=== PATIENT | male | born 1955 | race Caucasian/White ===

== ENCOUNTER 2025-02-18 17:09 | Observation (INO) ==
[2025-02-18 17:31] LABS: HCT - HEMATOCRIT 39.3 % (42.0-52.0); HGB - HEMOGLOBIN 13.0 g/dL (14.0-18.0); MEAN PLATELET VOLUME 8.3 fL (7.4-11.4); NRBC ABSOLUTE COUNT (AUTO) 0.00 x10^3/uL; NUCLEATED RED BLOOD CELLS AUTO 0.0 /100WBC; PLT - PLATELET COUNT 327 10^3/uL (130-450); RED CELL DISTRIBUTION WIDTH 14.0 % (12.0-15.0)
[2025-02-18 17:50] LABS: ALT ALANINE AMINOTRANSFERASE 29.0 IU/L (10-60); AST ASPARTATE AMINOTRANSFERASE 18.0 IU/L (10-42); BUN - BLOOD UREA NITROGEN 23.0 mg/dL (6-20); CARBON DIOXIDE - CO2 30.0 mmol/L (21-32); CREATININE 1.0 mg/dL (0.6-1.3); GFR - MDRD 74.0 (>89)
[2025-02-18] MEDS: SODIUM CHLORIDE 0.9% 1,000 ML IV STA (18:34)
[2025-02-18] MEDS: POTASSIUM BICARB 25 MEQ TABLET PO STA (19:38)
--- NOTE | 2025-02-18 19:51 | ED Physician Documentation ---
History of Present Illness Stated complaint Stated Complaint: SYNCOPE Chief complaint Chief Complaint: Neuro History obtained from History obtained from: Patient History of Present Illness Timing: Prior to arrival Additonal information Additional information: Patient is a 69-year-old male presenting to the emergency department after syncopal episode at home. Syncope occurred shortly prior to arrival patient admits to taking an extra hydrochlorothiazide dose that he was instructed to take if his blood pressures over 140. He notes he is not eating or drinking very much the last few days as he recently had an endarterectomy procedure for stenosis of the right carotid. He notes procedure went well he was seen by vascular surgery at [facility] and recovered well he was back at home currently on dual antiplatelet therapy and monitoring blood pressures closely. He notes he has been compliant with meds at home but has continued to smoke. He denies any chest pain or shortness of breath he is feeling generally weak prior to syncopal episode episode lasted about 30 seconds where patient went nonverbal for about 30 seconds and some possible right facial drooping occurred patient 911 was called patient was hypotensive at 88/60 sitting and then standing blood pressure of 70/30 with normal saline given. Patient arrives resting ANO x 3 no focal deficit. Meds/Allgy Home Medications Ambulatory Orders Medication Instructions Recorded Confirmed aspirin 325 mg tablet 325 mg PO DAILY #30 tabs 02/16 clopidogrel 75 mg tablet (Plavix) 75 mg PO DAILY #30 t abs 01/31/25 losartan 25 mg tablet 25 mg PO DAILY #30 tabs 02/16 simvastatin 20 mg tablet 20 mg PO DAILY #30 tabs 02/16 Allergies Allergies Allergy/AdvReac Type Severity Reaction Status Date / Time No Known Drug Allergies Allergy Verified 02/18/25 17:29 PFSH Active Problems All Active Problems (Updated 02/18/25 @ 20:52 by Ritika Nguyen PA-C) Orthostatic hypotension (Acute) Syncope (Acute) Syncope (Acute) Leukoplakia of oral mucosa, including tongue (Acute) Tobacco use (Acute) Hyperlipidemia (Chronic) Fasting hyperglycemia (Acute) Anemia, macrocytic (Acute) Preventative health care (Acute) Hypertension (Chronic) Carotid artery stenosis (Acute) Brain TIA (Acute) Adjustment disorder with depressed mood (Acute) Anxiety (Acute) Medical History Medical History (Updated 02/18/25 @ 20:52 by Ritika Nguyen PA-C) Depression Surgical History Surgical History H/O heart artery stent Social History Social History Smoking Status: Unknown if ever smoked Living arrangement: At home Do you feel safe in your home environment?: Yes History of physical, verbal, emotional, or financial abuse?: No POLST Patient has POLST: No Exam Exam Vital Signs: Vital Signs x48h Temp Pulse Pulse Pulse Pulse Resp BP 02/18/25 19:14 76 77 73 02/18/25 18:06 125/65 02/18/25 18:06 125/65 02/18/25 17:48 70 17 89/51 L 02/18/25 17:48 70 14 89/51 L 02/18/25 17:47 65 16 02/18/25 17:22 36.3 C L 66 13 112/48 L BP BP BP Pulse Ox 02/18/25 19:14 133/75 H 123/69 139/71 H 02/18/25 18:06 02/18/25 18:06 02/18/25 17:48 97 02/18/25 17:48 92 02/18/25 17:47 94 02/18/25 17:22 97 Constitutional normal general appearance HENMT normocephalic and head/scalp atraumatic Eyes PERRL, EOMs intact bilaterally and conjunctivae normal Neck/C-Spine visual inspection normal Lymph no lymphadenopathy noted Chest inspection of chest normal Respiratory breath sounds equal bilaterally, normal respiratory effort and clear to auscultation bilaterally Cardiovascular normal heart rate noted, regular rhythm noted and no gallop Gastrointestinal abdomen normal to inspection Neurology Cranial nerves III through XII intact patient has [id number] test intact GCS 15 on arrival no focal motor deficits no sensory deficits moving all extremities without difficulty on arrival. Psychiatry Mental Status Exam documented in the separate MSE Results Vitals Vitals: Vital Signs - 24 hr 02/18/25 17:22 02/18/25 17:47 02/18/25 17:48 Temperature 36.3 C L Temperature Source Temporal Artery Scan Pulse Rate 66 65 70 Pulse Rate [Sitting] Pulse Rate [Standing] Pulse Rate [Supine] Respiratory Rate 13 16 14 Blood Pressure 112/48 L 89/51 L Blood Pressure [Sitting] Blood Pressure [Standing] Blood Pressure [Supine] O2 Saturation 97 94 92 O2 Source Room air Pain Intensity 0 02/18/25 17:48 02/18/25 18:06 02/18/25 18:06 Temperature Temperature Source Pulse Rate 70 Pulse Rate [Sitting] Pulse Rate [Standing] Pulse Rate [Supine] Respiratory Rate 17 Blood Pressure 89/51 L 125/65 125/65 Blood Pressure [Sitting] Blood Pressure [Standing] Blood Pressure [Supine] O2 Saturation 97 O2 Source Pain Intensity 02/18/25 18:11 02/18/25 19:14 Temperature Temperature Source Pulse Rate Pulse Rate [Sitting] 76 Pulse Rate [Standing] 77 Pulse Rate [Supine] 73 Respiratory Rate Blood Pressure Blood Pressure [Sitting] 133/75 H Blood Pressure [Standing] 123/69 Blood Pressure [Supine] 139/71 H O2 Saturation O2 Source Pain Intensity 0 Oxygen O2 Source Room air Labs Labs: Laboratory Tests 02/18/25 02/18/25 02/18/25 17:27 18:06 18:37 WBC 12.2 H RBC 4.14 L Hgb 13.0 L Hct 39.3 L MCV 94.9 H MCH 31.4 H MCHC 33.1 RDW 14.0 Plt Count 327 MPV 8.3 Neut # (Auto) 8.6 H Lymph # (Auto) 2.5 Dickey # (Auto) 0.6 Eos # (Auto) 0.3 Baso # (Auto) 0.1 Absolute Nucleated RBC 0.00 Nucleated RBC % 0.0 Sodium 139 Potassium 3.3 L Chloride 103 Carbon Dioxide 30 Anion Gap 6.0 BUN 23 H Creatinine 1.0 Estimated GFR (MDRD) 74 L Glucose 114 H Lactic Acid 1.0 Calcium 8.9 Total Bilirubin 0.5 AST 18 ALT 29 Alkaline Phosphatase 81 Troponin I High Sens 6.5 B-Natriuretic Peptide 28 Total Protein 6.2 L Albumin 3.7 Globulin 2.5 Albumin/Globulin Ratio 1.5 Urine Color Urine Clarity Urine pH Ur Specific Drury Urine Protein Urine Glucose (UA) Urine Ketones Urine Occult Blood Urine Nitrite Urine Bilirubin Urine Urobilinogen Ur Leukocyte Esterase Ur Microscopic Review Urine Culture Comments Ethyl Alcohol < 10.0 02/18/25 19:52 WBC RBC Hgb Hct MCV MCH MCHC RDW Plt Count MPV Neut # (Auto) Lymph # (Auto) Dickey # (Auto) Eos # (Auto) Baso # (Auto) Absolute Nucleated RBC Nucleated RBC % Sodium Potassium Chloride Carbon Dioxide Anion Gap BUN Creatinine Estimated GFR (MDRD) Glucose Lactic Acid Calcium Total Bilirubin AST ALT Alkaline Phosphatase Troponin I High Sens B-Natriuretic Peptide Total Protein Albumin Globulin Albumin/Globulin Ratio Urine Color YELLOW Urine Clarity CLEAR Urine pH 8.0 H Ur Specific Drury 1.010 Urine Protein NEGATIVE Urine Glucose (UA) NEGATIVE Urine Ketones NEGATIVE Urine Occult Blood NEGATIVE Urine Nitrite NEGATIVE Urine Bilirubin NEGATIVE Urine Urobilinogen 0.2 (NORMAL) Ur Leukocyte Esterase NEGATIVE Ur Microscopic Review NOT INDICATED Urine Culture Comments NOT INDICATED Ethyl Alcohol PD Medical Decision Making ED course Complexity details: reviewed old records and reviewed results ED course: Patient 69-year-old male presenting to the emergency department with syncopal episodes and reports of possible right facial and right sided weakness during syncopal episode he recently had carotid endarterectomy procedure to weeks ago after being seen here on the and following up with [facility] vascular surgery after CTA showed near complete occlusion of right carotid artery. Patient followed had procedure done and was able to return home last week he has been home for about a week but took an extra dose of hydrochlorothiazide this morning for some slightly elevated blood pressures and SBP's over 140s. He had not been eating or drinking much secondary to his surgeries and had a syncopal episode when talking to his friend in the garage. He was feeling very lightheaded and believes he passed out for about 30 seconds and this is confirmed by EMS who had witness on scene. Labs here in the emergency department show mild leukocytosis of 12.2 mildly anemic at 13.0 but no significant electrolyte abnormality other than some mild hypokalemia with no EKG changes. Troponin well within normal limits no significant KEKE according to previous labs urine shows no signs of UTI and alcohol level is negative. CT head: No acute intracranial pathology. 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 If it would be helpful for clinical management decision making, please consider a dedicated brain MRI for further evaluation (assuming that there is no contraindication). CT was stable from previous on 01/31. I discussed with patient he has reassuring workup he is feeling better blood pressure remained stable eating and drinking here in the ED no acute distress however patient syncopal episode and recent surgery I recommend patient be admitted he is agreeable to staying overnight for monitoring and telemetry overnight. I reviewed with hospitalist and they are agreeable to to except patient this evening. Discharge Plan Discharge Patient Disposition: 67 [facility] DC/Xfer Condition: Good Clinical Impression: Syncope, Orthostatic hypotension
[2025-02-18 20:26] LABS: GLUCOSE, URINE (UA) NEGATIVE (NEGATIVE); KETONES,URINE (UA) NEGATIVE (NEGATIVE); OCCULT BLOOD,URINE NEGATIVE (NEGATIVE)
--- NOTE | 2025-02-18 20:26 | CT Report ---
PROCEDURE: CT Head WO INDICATIONS: tia work up TECHNIQUE: CT of the head was performed, without intravenous contrast. Reformats: Coronal and sagittal. For radiation dose reduction, the following was used: automated exposure control, adjustment of mA and/or kV according to patient size. COMPARISON: 01/31/2025 CT and MRI. FINDINGS: Image quality: Diagnostic. CSF spaces: Basal cisterns are patent. No extra-axial fluid collections. Ventricles are normal in size and shape. Brain: No midline shift. No intracranial mass effect or hemorrhage. Moreno- white matter interface is normal. There is again seen a remote infarct with right parietal region. A tiny prior infarct can be seen along the right caudate head. Skull and face: Calvarium and visualized facial bones are intact, without suspicious lesions. Sinuses: Visualized sinuses and mastoids are clear. IMPRESSION: No acute intracranial pathology. 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 If it would be helpful for clinical management decision making, please consider a dedicated brain MRI for further evaluation (assuming that there is no contraindication). Note: Case discussed by telephone with Ritika Nguyen at 7:03 p.m. [place] time on 02/18/2025. Reviewed by: Chandra Choi MD on 02/18/2025 7:23 PM IRIS Approved by: Chandra Choi MD on 02/18/2025 7:23 PM IRIS Station ID: [id number]
--- NOTE | 2025-02-18 20:42 | HISTORY & PHYSICAL EXAMINATION ---
Chief Complaint Chief Complaint Chief Complaint: Syncope History of Present Illness Admitted From Admitted From:: Home History Obtained From History obtained from: Patient interview History of Present Illness HPI Comment/Other: 69-year-old male history of TIA, carotid artery stenosis primary, carotid endarterectomy earlier this month with presents with syncopal episode. He reports that shortly prior to arrival he took an extra HCTZ dose as instructed if his blood pressure was over 140. He reports he has not ate or drank much over the past few days because of his postop status. He had an episode of being nonverbal for about 30 seconds, and bystanders noted right sided facial droop so 911 was called. He was noted to be hypotensive at 88/60 when sitting and 70/30 in the field. He received normal saline with improvement in his symptoms. Denies fever, chills, chest pain, dyspnea, bowel or bladder abnormality In the ER, CT head was performed which showed no acute finding. WBC was noted to be elevated at 12.2, but he reports no fevers or chills. Hospitalist was contacted for observation for syncope Meds/Allgy Home Medications Ambulatory Orders Medication Instructions Recorded Confirmed aspirin 325 mg tablet 325 mg PO DAILY #30 tabs 02/16 clopidogrel 75 mg tablet (Plavix) 75 mg PO DAILY #30 t abs 01/31/25 losartan 25 mg tablet 25 mg PO DAILY #30 tabs 02/16 simvastatin 20 mg tablet 20 mg PO DAILY #30 tabs 02/16 Allergies Allergies Allergy/AdvReac Type Severity Reaction Status Date / Time No Known Drug Allergies Allergy Verified 02/18/25 17:29 PFSH Active Problems All Active Problems (Updated 02/18/25 @ 20:52 by Ritika Nguyen PA-C) Orthostatic hypotension (Acute) Syncope (Acute) Syncope (Acute) Leukoplakia of oral mucosa, including tongue (Acute) Tobacco use (Acute) Hyperlipidemia (Chronic) Fasting hyperglycemia (Acute) Anemia, macrocytic (Acute) Preventative health care (Acute) Hypertension (Chronic) Carotid artery stenosis (Acute) Brain TIA (Acute) Adjustment disorder with depressed mood (Acute) Anxiety (Acute) Medical History Medical History (Updated 02/18/25 @ 20:52 by Ritika Ngueyn PA-C) Depression Surgical History Surgical History H/O heart artery stent Social History Social History Living arrangement: At home Do you feel safe in your home environment?: Yes History of physical, verbal, emotional, or financial abuse?: No POLST Patient has POLST: No Review of Systems Status of ROS: 10 or more systems reviewed and unremarkable except as noted in history and below Constitutional Denies: Fever or Chills Cardiovascular Denies: Irregular heart rate, chest pain, palpitations or shortness of breath with exertion Respiratory Denies: Shortness of breath, Cough or Sputum production Gastrointestinal Denies: Abdominal pain or Abdominal distention Neurological Reports: General weakness and Difficulty communicating thoughts Exam Exam Vital Signs: Vital Signs x48h Temp Pulse Pulse Pulse Pulse Resp BP 02/18/25 19:14 76 77 73 02/18/25 18:06 125/65 02/18/25 18:06 125/65 02/18/25 17:48 70 17 89/51 L 02/18/25 17:48 70 14 89/51 L 02/18/25 17:47 65 16 02/18/25 17:22 36.3 C L 66 13 112/48 L BP BP BP Pulse Ox 02/18/25 19:14 133/75 H 123/69 139/71 H 02/18/25 18:06 02/18/25 18:06 02/18/25 17:48 97 02/18/25 17:48 92 02/18/25 17:47 94 02/18/25 17:22 97 Constitutional Tired elderly male in no acute distress [facility] normocephalic and head/scalp atraumatic Eyes PERRL Chest inspection of chest normal and palpation of chest normal Respiratory breath sounds equal bilaterally and normal respiratory effort Cardiovascular normal heart rate noted and regular rhythm noted Gastrointestinal abdomen normal to inspection, abdomen soft to palpation, nontender to palpation and normoactive bowel sounds Extremities normal to inspection and normal to palpation Neurology no movement abnormality noted, no focal motor deficit noted, speech normal and GCS 15 Psychiatry oriented x3 Skin Surgical incision on right neck open to air with good healing Conclusion/Plan Problem List (1) Syncope: Plan: Likely from dehydration/low blood pressure His symptoms have improved with IVF Placing in observation so he can undergo echocardiogram Telemetry (2) Carotid artery stenosis: Plan: Underwent right carotid endart on 02/08 Continue DAPT Target SBP less than 140 Qualifiers: Laterality: right Qualified Code(s): I65.21 - Occlusion and stenosis of right carotid artery Plan Place in observation Full code His son is his surrogate decision maker Declines POLST form at this time Lab Results Lab results reviewed: Yes 02/18/25 17:27 02/18/25 17:27 Diagnostic Imaging Results Diagnostic Imaging Results: positive Final report reviewed
[2025-02-18] MEDS ORDERED: ONDANSETRON 4 MG/2 ML VIAL IVP PRN (21:50)
[2025-02-18] MEDS ORDERED: ONDANSETRON ODT 4 MG TABLET TL PRN (21:50)
[2025-02-18] MEDS ORDERED: ACETAMINOPHEN 325 MG TABLET PO PRN (21:50)
[2025-02-18] MEDS ORDERED: SODIUM CHLORIDE FLUSH 0.9% 10 ML SYRINGE IVP PRN (21:50)
[2025-02-18] MEDS: LACTATED RINGERS 1,000 ML IV SCH (22:19)
[2025-02-18] MEDS: SODIUM CHLORIDE FLUSH 0.9% 10 ML SYRINGE IVP SCH (23:59)
[2025-02-19] MEDS: CLOPIDOGREL 75 MG TABLET PO SCH (00:21)
[2025-02-19 06:08] LABS: HCT - HEMATOCRIT 39.3 % (42.0-52.0); HGB - HEMOGLOBIN 12.8 g/dL (14.0-18.0); MEAN PLATELET VOLUME 8.6 fL (7.4-11.4); NRBC ABSOLUTE COUNT (AUTO) 0.00 x10^3/uL; NUCLEATED RED BLOOD CELLS AUTO 0.0 /100WBC; PLT - PLATELET COUNT 291 10^3/uL (130-450); RED CELL DISTRIBUTION WIDTH 14.0 % (12.0-15.0)
[2025-02-19 06:46] LABS: BUN - BLOOD UREA NITROGEN 18.0 mg/dL (6-20); CARBON DIOXIDE - CO2 28.0 mmol/L (21-32); CREATININE 0.8 mg/dL (0.6-1.3); GFR - MDRD 96.0 (>89)
--- NOTE | 2025-02-19 08:25 | PHARMACY PROGRESS NOTE ---
Best Possible Medication History Admit Date and Time: 02/18/252031 Home Medications Medication Instructions Recorded Confirmed Type clopidogrel 75 mg tablet (Plavix) 75 mg PO DAILY #30 t abs 01/31/25 02/19/25 Rx amlodipine 10 mg tablet 10 mg PO DAILY 02/19/2501/24 History aspirin 81 mg tablet 81 mg PO DAILY 02/19/2501/24 History atorvastatin 80 mg tablet 80 mg PO QPM 02/19/25 History hydrochlorothiazide 12.5 mg capsule 12.5 - 25 mg PO DA MICHAEL 02/19/25 02/19/25 History losartan 100 mg tablet 100 mg PO DAILY 02/19/25 History nicotine 21 mg/24 hr daily 1 patch topical Q24H PRN ni cotine 02/19/25 02/19/25 History transdermal patch cravings Processed by: Pharmacy Medications reviewed in ED?: No Medication History completed: Yes Patient Interview: Completed Secondary Source(s): Written medication list, Pharmacy records, Insurance records and Previous admit records [facility] Statement: As the person ultimately responsible for medication therapy, providers are able to order a medication from an existing home medication list in [facility] via the "Reconcile Routine" prior to Confirmation of that medication by office support clerk. Such practice is discouraged except when the physician, in their clinical judgment, deems that a medical need exists for a medication without regard to previous use.
[2025-02-19] MEDS ORDERED: LOSARTAN 50 MG TABLET PO SCH (09:00)
[2025-02-19] MEDS ORDERED: ASPIRIN EC 325 MG TABLET PO SCH (09:00)
[2025-02-19] MEDS: ASPIRIN CHEW 81 MG TABLET PO SCH (09:19)
[2025-02-19] MEDS: LOSARTAN 50 MG TABLET PO SCH (09:19)
--- NOTE | 2025-02-19 12:18 | Discharge Summary ---
Discharge Summary Admit Date: 02/18/25 Discharge Date: 02/19/25 Discharging Provider: Patel Dhaliwal Primary Care Provider: Alondra Ko Code Status: Attempt Resuscitation DIAGNOSES Admission Diagnoses: Syncope History of carotid artery stenosis Discharge Diagnoses with Status of Each Condition: Syncopelikely secondary to low blood pressure/dehydration History of carotid artery stenosispostop Endart HPI History of Present Illness: 69-year-old male history of TIA, carotid artery stenosis primary, carotid endarterectomy earlier this month with presents with syncopal episode. He reports that shortly prior to arrival he took an extra HCTZ dose as instructed if his blood pressure was over 140. He reports he has not ate or drank much over the past few days because of his postop status. He had an episode of being nonverbal for about 30 seconds, and bystanders noted right sided facial droop so 911 was called. He was noted to be hypotensive at 88/60 when sitting and 70/30 in the field. He received normal saline with improvement in his symptoms. Denies fever, chills, chest pain, dyspnea, bowel or bladder abnormality In the ER, CT head was performed which showed no acute finding. WBC was noted to be elevated at 12.2, but he reports no fevers or chills. Hospitalist was contacted for observation for syncope HOSPITAL COURSE Hospital Course: Patient was placed in observation on telemetry. No events on telemetry. Echocardiogram performed, results pending. Patient is feeling much better after his IV fluids and he is discharging home. He already has an appointment set up to establish care with a new PCP. He has been instructed to notify the office of his admission both here and at [facility] ALLERGIES Allergies Allergy/AdvReac Type Severity Reaction Status Date / Time No Known Drug Allergies Allergy Verified 02/18/25 17:29 MEDICATIONS Ambulatory Orders Medication Instructions Recorded Confirmed clopidogrel 75 mg tablet (Plavix) 75 mg PO DAILY #30 t abs 01/31/25 02/19/25 amlodipine 10 mg tablet 10 mg PO DAILY 02/19/2501/24 aspirin 81 mg tablet 81 mg PO DAILY 02/19/2501/24 atorvastatin 80 mg tablet 80 mg PO QPM 02/19/25 hydrochlorothiazide 12.5 mg capsule 12.5 - 25 mg PO DA MICHAEL 02/19/25 02/19/25 losartan 100 mg tablet 100 mg PO DAILY 02/19/25 nicotine 21 mg/24 hr daily 1 patch topical Q24H PRN ni cotine 02/19/25 02/19/25 transdermal patch cravings PHYSICAL EXAM AT DISCHARGE Vital Signs: Vital Signs x48h Temp Pulse Resp BP Pulse Ox 02/19/25 08:20 36.6 C 68 18 123/81 98 Physical Exam Other/Comments: Constitutional Elderly male in no acute distress HENMT normocephalic and head/scalp atraumatic Eyes PERRL Chest inspection of chest normal and palpation of chest normal Respiratory breath sounds equal bilaterally and normal respiratory effort Cardiovascular normal heart rate noted and regular rhythm noted Gastrointestinal abdomen normal to inspection, abdomen soft to palpation, nontender to palpation and normoactive bowel sounds Extremities normal to inspection and normal to palpation Neurology no movement abnormality noted, no focal motor deficit noted, speech normal and GCS 15 Psychiatry oriented x3 Skin Surgical incision on right neck open to air with good healing LABS 02/19/25 05:33 02/19/25 05:33 FOLLOW UP Follow Up: With PCP TIME SPENT Time Spent in Discharge (Minutes): 39 Discharge Plan Discharge Patient Disposition: Home, Self Care Condition: Good Prescriptions: Continued clopidogrel [Plavix] 75 mg tablet 75 mg PO DAILY Qty: 30 0RF amlodipine 10 mg tablet 10 mg PO DAILY Patient Comments: TAKE 1 TABLET BY MOUTH EVERY DAY aspirin 81 mg tablet 81 mg PO DAILY atorvastatin 80 mg tablet 80 mg PO QPM Patient Comments: TAKE 1 TABLET BY MOUTH EVERYDAY AT BEDTIME losartan 100 mg tablet 100 mg PO DAILY Patient Comments: TAKE 1 TABLET BY MOUTH EVERY DAY nicotine 21 mg/24 hr patch 24 hour 1 patch topical Q24H PRN (Reason: nicotine cravings) Patient Comments: PLACE 1 PATCH ONTO THE SKIN NEEDED. KEEP APPLIED FOR 24 HOURS. hydrochlorothiazide 12.5 mg capsule 12.5 - 25 mg PO DAILY Patient Comments: TAKE 1 CAPSULE BY MOUTH EVERY DAY, MAY TAKE AN ADDITIONAL CAPSULE IF SBP IS OVER 140 Diet: Regular Health Concerns: You came into the hospital because you had an episode that was concerning for stroke versus syncope. Your symptoms have resolved with IV fluid administration. I believe that the symptoms were due to dehydration and low blood pressure. I am discharging you home. No events were noted overnight on telemetry. We performed echocardiogram, and the results should be available in the next few days. I would like for you to continue your regimen as prescribed. Please exercise caution with your extra doses of blood pressure medication, and drink plenty of water. Please follow-up with your PCP. Print Language: Faroese Patient Instructions: Causes of Syncope Stand Alone Forms: PCP List
[2025-02-19 13:08] VITALS: BP 169/70; TEMP 97.7; O2SAT 99
--- NOTE | 2025-02-19 16:01 | ECHO Report ---
Version: 1 Study ID: [id number] Adult Echocardiogram Report Name: ORION GOLDSMITH Study Date: 02/19/2025, 7: 34 AM BP: 139 / 52 mmHg Patient Location: [facility] [place]^[id number]^[id number] HR: 63 bpm : 1955 (MM/DD/YYYY) Gender: Male Height: 73 in Age: 69 Years Weight: 157 lb BSA: 1.94 m² Reason For Study: Workup syncope History: Cardiac stent. Carotid endart. 02/08/2025. Interpretation Summary Global left ventricular systolic function is normal. The visual left ventricular ejection fraction is estimated at 60 to 65%. TAPSE is consistent with normal right ventricular function. No concerning cardiac valve disease is noted. Left Ventricle: The left ventricle is normal in size. There is normal left ventricular wall thickness. No thrombus seen in the left ventricle. The visual left ventricular ejection fraction is estimated at 60 to 65%. Global left ventricular systolic function is normal. The overall diastolic pattern is one of normal left ventricular relaxation and filling pressures. Right Ventricle: The right ventricle is borderline dilated. TAPSE is consistent with normal right ventricular function. The tricuspid annular plane systolic excursion (TAPSE) measurement is 2.5 cm. Aortic Valve: The aortic valve is mildly calcified. No hemodynamically significant valvular aortic stenosis. No aortic regurgitation is present. Mitral Valve: The mitral valve leaflets are mildly thickened. Mild mitral annular calcification is present. No evidence of mitral stenosis is seen. There is mild to moderate mitral regurgitation. Tricuspid Valve: The tricuspid valve is structurally normal. There is no tricuspid stenosis. Trace tricuspid regurgitation present. Pulmonic Valve: The pulmonic valve is normal in structure and function. There is no pulmonic valvular stenosis. Trace pulmonic valvular regurgitation is present. Left Atrium: The left atrial size is normal. Right Atrium: The right atrium is borderline dilated. Atrial Septum: The interatrial septum appears normal, without evidence of shunt by 2D imaging and color Doppler. Aorta: The ascending aorta is normal in size. The transverse arch is normal in size. The sinuses of Valsalva are normal in size. Pulmonary Artery: The pulmonary artery is not well visualized, but is probably normal size. Inferior vena cava dynamics indicate normal right atrial pressures. Pulmonary artery systolic pressure could not be estimated due to an insufficient tricuspid regurgitant jet. Pericardium/Pleural Space: There is no pericardial effusion. Left Ventricle IVSd: 0.87 cm LVIDd: 5.3 cm LVPWd: 0.86 cm LVIDs: 3.7 cm ESV(sp4-el): 63.7 ml Right Ventricle TAPSE: 2.45 cm RV S Alexander: 14.5 cm/sec Atria LA dimension: 4.8 cm LAV(MOD-sp4): 52.1 ml LAV(MOD-sp2): 47.7 ml Diastolic Function MV dec time: 0.23 sec MV E max alexander: 129.7 cm/sec MV A max alexander: 115.9 cm/sec Aortic Valve LVOT diam: 1.75 cm LV V1 mean P.8 mmHg LV V1 mean: 78.2 cm/sec LV V1 VTI: 26.4 cm Ao V2 VTI: 27.5 cm Ao mean P.2 mmHg Ao V2 mean: 82.2 cm/sec LV V1 max: 121.3 cm/sec LV V1 max P.9 mmHg Ao max P.2 mmHg Ao V2 max: 124.9 cm/sec Mitral Valve MV max P.9 mmHg MV V2 max: 130.9 cm/sec MV mean P.4 mmHg MV V2 mean: 85.7 cm/sec MV V2 VTI: 41.3 cm Aorta Ao root diam: 3.5 cm MMode/2D Measurements & Calculations Ao root diam: 3.5 cm BMI: 20.7 kilograms/m² BSA([facility]): 1.91 m² ESV(sp4-el): 63.7 ml IVSd: 0.87 cm LA A4C-A/L: 18.9 cm² LA dimension: 4.8 cm LA ESV-A/L: 53.4 ml LA Vol Index: 32.8 ml/m² LAV(MOD-sp2): 47.7 ml LAV(MOD-sp4): 52.1 ml LVIDd: 5.3 cm LVIDs: 3.7 cm LVOT diam: 1.75 cm LVPWd: 0.86 cm RA A4Cs: 15.1 cm² TAPSE: 2.45 cm Doppler Measurements & Calculations Ao max P.2 mmHg Ao mean P.2 mmHg Ao V2 max: 124.9 cm/sec Ao V2 mean: 82.2 cm/sec Ao V2 VTI: 27.5 cm Lat E/e': 12.6 LV V1 max: 121.3 cm/sec LV V1 max P.9 mmHg LV V1 mean: 78.2 cm/sec LV V1 mean P.8 mmHg LV V1 VTI: 26.4 cm Med E/e': 12.9 MV A max alexander: 115.9 cm/sec MV dec time: 0.23 sec MV DVI-pr: 1.12 MV E max alexander: 129.7 cm/sec MV max P.9 mmHg MV mean P.4 mmHg MV V2 max: 130.9 cm/sec MV V2 mean: 85.7 cm/sec MV V2 VTI: 41.3 cm PA max P.1 mmHg PA V2 max: 112.9 cm/sec RV S Alexander: 14.5 cm/sec Other Measurements & Calculations Ao root area: 9.6 cm² JOHNNY(I,D): 2.31 cm² JOHNNY(V,D): 2.35 cm² EDV(Teich): 137.6 ml EF(sp-el): 50.0 % EF(Teich): 57.9 % ESV(Teich): 57.9 ml FS: 30.8 % LVOT area: 2.42 cm² MV E/A: 1.12 MVA(VTI): 1.54 cm² SV(LVOT): 63.7 ml MD Kimberly Martins 02/19/2025, 4: 00 PM Ordering Physician: Patel Dhaliwal Referring Physician: Ritika Nguyen Performed By: TRA[facility]
[2025-02-19] MEDS ORDERED: ATORVASTATIN 10 MG TABLET PO SCH (21:00)
== END 2025-02-19 12:55 | disposition home or self-care (01) ==
LOC: MS2 17:09 → ED 17:09 → MS2 21:39
PROVIDERS: ADMIT Nurse Practitioner Acute Care; ATTEND Nurse Practitioner Acute Care